=== PATIENT | female | born 1955 | race Caucasian/White ===

== ENCOUNTER 2016-11-18 09:35 | Emergency (ER) | payer MEDICARE, OTHER | END 2016-11-18 11:08 | disposition home or self-care (01) | LOC: ER 09:35 | DX: B34.9 Viral infection, unspecified (principal); F32.9 Major depressive disorder, single episode, unspecified; E11.9 Type 2 diabetes mellitus without complications; E78.5 Hyperlipidemia, unspecified; K21.9 Gastro-esophageal reflux disease without esophagitis; F17.210 Nicotine dependence, cigarettes, uncomplicated; Z90.49 Acquired absence of other specified parts of digestive tract; Z79.4 Long term (current) use of insulin | CPT/HCPCS: 87502 ==

== ENCOUNTER 2017-01-23 03:08 | Emergency (ER) | payer MEDICARE, OTHER | END 2017-01-23 05:35 | disposition home or self-care (01) | LOC: ER 03:08 | DX: R11.0 Nausea (principal); R30.0 Dysuria; R51 Headache; F32.9 Major depressive disorder, single episode, unspecified; E11.9 Type 2 diabetes mellitus without complications; F17.210 Nicotine dependence, cigarettes, uncomplicated; Z90.49 Acquired absence of other specified parts of digestive tract; Z79.4 Long term (current) use of insulin; Z79.899 Other long term (current) drug therapy | CPT/HCPCS: 36415; 96361; 96374 ==

== ENCOUNTER 2017-01-24 19:34 | Emergency (ER) | payer MEDICARE, OTHER | END 2017-01-24 21:53 | disposition home or self-care (01) | LOC: ER 19:34 | DX: F13.230 Sedative, hypnotic or anxiolytic dependence with withdrawal, uncomplicated (principal); H92.02 Otalgia, left ear; R42 Dizziness and giddiness; R11.0 Nausea; F32.9 Major depressive disorder, single episode, unspecified; E11.9 Type 2 diabetes mellitus without complications; F17.210 Nicotine dependence, cigarettes, uncomplicated; Z90.49 Acquired absence of other specified parts of digestive tract; Z79.4 Long term (current) use of insulin; Z79.899 Other long term (current) drug therapy | CPT/HCPCS: 36415 ==